=== PATIENT | male | born 1990 | race Caucasian/White ===

== ENCOUNTER 2019-04-03 19:37 | Emergency (ER) | payer SELFPAY ==
[~2019-04-03] VITALS: Ht 177.8 cm; Wt 125.0 kg
[~2019-04-03 19:37] MED LIST: ACET325T33 PO; ALBU8.5H8 INH; AMOX500C2 PO; AZIT250T PO; BACTDS PO; CEPH-443 PO; IBUP-1542 PO; NAPR-985 PO; NPH10OT LEFT EAR; ONDA4TAB8 PO; POLY30OI TOP
[2019-04-03 20:20] VITALS: Ht 177.8 cm; Wt 125.0 kg
--- NOTE | 2019-04-03 23:10 | ERD ---
ER Documentation Chief Complaint Chief Complaint REPORTS BLOOD IN STOOL & BLOOD IN UNDERWEAR X 2 DAYS HPI 28-year-old male, previously healthy, presents to the emergency department, complaining of 2 days with painless rectal bleeding after the bowel movements. The patient denies history of previous episodes, no abdominal pain, no diarrhea or constipation. No fever or chills. ROS All systems reviewed and are negative except as per history of present illness. Medications Home Meds Active Scripts Ondansetron Hcl* (Zofran*) 4 Mg Tablet, 4 MG PO Q6H for NAUSEA AND/OR VOMITING, #30 TAB Prov:LORENA COOPER 10/13/16 Albuterol Sulfate* (Proair HFA*) 8.5 Gm Hfa.aer.ad, 2 PUFF INH Q4, #1 INHALER Prov:LORENA COOPER 10/13/16 Azithromycin* (Zithromax*) 250 Mg Tablet, 250 MG PO .ZPACK DIRECTED, #6 TAB TAKE 500 MG (2 TABS) THE FIRST DAY THEN 250 MG (1 TAB) DAYS 2-5 Prov:LORENA COOPER 10/13/16 Naproxen* (Naprosyn*) 500 Mg Tablet, 500 MG PO BID PRN for PAIN AND/OR INFLAMMATION, #30 TAB Prov:REEMA GRIDER PA-C 08/20/16 Neomycin/Polymyxin/Hydrocort* (Cortisporin* Otic) 10 Ml Susp, 4 DROP LEFT EAR QID for 7 Days, EA Prov:REEMA GRIDER PA-C 08/20/16 Ibuprofen* (Motrin*) 600 Mg Tab, 600 MG PO Q8, #12 TAB Prov:BRENDA SILVA DO 07/30/16 Acetaminophen* (Tylenol*) 325 Mg Tablet, 2 TAB PO Q8 PRN for PAIN AND OR ELEVATE D TEMP, #20 TAB Prov:BRENDA SILVA DO 07/30/16 Neomycin/Polymyxin/Hydrocort* (Cortisporin* Otic) 10 Ml Susp, 4 DROP LEFT EAR QID for 7 Days, EA Prov:BRENDA SILVA DO 07/30/16 Amoxicillin* (Amoxicillin*) 500 Mg Cap, 500 MG PO TID for 10 Days, CAP Prov:BRENDA SILVA DO 07/30/16 Ibuprofen* (Motrin*) 600 Mg Tab, 600 MG PO Q6, #30 TAB Prov:JUDI LOVELL PA-C 12/19/15 Cephalexin* (Keflex*) 500 Mg Capsule, 500 MG PO QID for 7 Days, CAP Prov:JUDI LOVELL PA-C 12/19/15 Sulfamethoxazole-Trimethoprim* (Bactrim* DS) 800-160 Mg Tab, 1 TAB PO BID for 10 Days, TAB Prov:JUDI LOVELL PA-C 12/19/15 Bacitracin-Polymyxin* (Bacitracin-Polymyxin* Oint) 30 Gm Oint..gm., 1 APPLIC TOP BID, #1 TUB Prov:JUDI LOVELL PA-C 12/19/15 Allergies Allergies: Coded Allergies: No Known Allergy (Unverified , 08/20/16) PMhx/Soc Medical and Surgical Hx: pt denies Medical Hx, pt denies Surgical Hx Hx Miscellaneous Medical Probl: No Hx Alcohol Use: No Hx Substance Use: No Hx Tobacco Use: No FmHx Family History: No diabetes, No coronary disease Physical Exam Vitals Vital Signs Date Temp Pulse Resp B/P (MAP) Pulse Ox O2 O2 Flow FiO2 Time Delivery Rate 04/04/19 99.2 98 18 140/95 97 01:40 (110) 04/03/19 99.7 103 18 154/94 98 20:20 (114) Physical Exam Const: No acute distress Head: Atraumatic Eyes: Normal Conjunctiva ENT: Normal External Ears, Nose and Mouth. Neck: Full range of motion. No meningismus. Resp: Clear to auscultation bilaterally Cardio: Regular rate and rhythm, no murmurs Abd: Soft, non tender, non distended. Normal bowel sounds Rectal Exam: Normal tone, internal hemorrhoids palpated, Positive control Stool: Brown Guaiac: Negative Skin: No petechiae or rashes Back: No midline or flank tenderness Ext: No cyanosis, or edema Neur: Awake and alert Psych: Normal Mood and Affect Result Diagram: 04/03/19 5249 04/03/19 2326 Results 24 hrs Laboratory Tests Test 04/03/19 23:26 White Blood Count 7.3 10^3/ul Red Blood Count 5.32 10^6/ul Hemoglobin 15.4 g/dl Hematocrit 46.0 % Mean Corpuscular Volume 86.5 fl Mean Corpuscular Hemoglobin 28.9 pg Mean Corpuscular Hemoglobin Concent 33.5 g/dl Red Cell Distribution Width 12.3 % Platelet Count 252 10^3/UL Mean Platelet Volume 10.3 fl Immature Granulocytes % 0.400 % Neutrophils % 57.6 % Lymphocytes % 21.5 % Monocytes % 17.9 % Eosinophils % 2.3 % Basophils % 0.3 % Nucleated Red Blood Cells % 0.0 /100WBC Immature Granulocytes # 0.030 10^3/ul Neutrophils # 4.2 10^3/ul Lymphocytes # 1.6 10^3/ul Monocytes # 1.3 10^3/ul Eosinophils # 0.2 10^3/ul Basophils # 0.0 10^3/ul Nucleated Red Blood Cells # 0.0 10^3/ul Sodium Level 141 mmol/L Potassium Level 3.9 mmol/L Chloride Level 101 mmol/L Carbon Dioxide Level 28 mmol/L Anion Gap 12 Blood Urea Nitrogen 9 mg/dl Creatinine 0.77 mg/dl Est Glomerular Filtrat Rate mL/min > 60 mL/min Glucose Level 110 mg/dl Calcium Level 9.3 mg/dl Total Bilirubin 1.2 mg/dl Direct Bilirubin 0.00 mg/dl Indirect Bilirubin 1.2 mg/dl Aspartate Amino Transf (AST/SGOT) 46 IU/L Alanine Aminotransferase (ALT/SGPT) 107 IU/L Alkaline Phosphatase 74 IU/L Total Protein 8.3 g/dl Albumin 4.6 g/dl Globulin 3.70 g/dl Albumin/Globulin Ratio 1.24 Lipase 44 U/L Procedures/MDM Differential diagnosis include but not limited to: Internal hemorrhoid, external hemorrhoid, skin tag, bowel Obstruction, ileus, fecal impaction. Low suspicion for acute abdomen. Physical examination and clinical presentation consistent most likely with internal hemorrhoids, negative active rectal bleeding during rectal exam. During the ED course the patient remained stable, no new complaints. Treatment options, results and clinical impression discussed with the patient who agrees with management. The patient is stable to be treated outpatient and will be discharged home, some side effects of prescribed medications were reviewed. The patient was instructed to follow up with the primary care provider in the next 48h. If symptoms persist, worsen or new symptoms develop, then patient should return to the ED immediately. Instructions explained and given directly by me to the patient with acknowledgment and demonstrated understanding. Disclaimer: Inadvertent spelling and grammatical errors are likely due to EHR/d ictation software use and do not reflect on the overall quality of patient care. Also, please note that the electronic time recorded on this note does not necessarily reflect the actual time of the patient encounter. Departure Diagnosis: Primary Impression: Rectal bleeding Additional Impression: Internal hemorrhoid, bleeding Condition: Stable Additional Instructions: Thank you very much for allowing us to participate in your care. Your health and safety is our top priority at [facility]. The evaluation in the emergency department has been done to rule out an acute emergency. Chronic, [id number] conditions may have not been evalua shellie; therefore, you need to follow up with a primary care provider in the next 48h. If symptoms persist, worsen or new symptoms develop, then patient should return to the ED immediately. Call your primary care doctor TOMORROW for an appointment during the next 2-4 days and bring all the information provided. Have prescriptions filled and follow precisely the directions on the label. If the symptoms get worse and your provider is unavailable, return to the Emergency Department immediately. ANABELLA CABRERA MD Apr 03, 2019 23:10
[2019-04-04 01:40] VITALS: BP 140/95; PULSE 98; RESP 18
== END 2019-04-04 01:41 | disposition home or self-care (01) ==
LOC: FTE 19:37
DX: K62.5 Hemorrhage of anus and rectum (principal); K64.8 Other hemorrhoids
CPT/HCPCS: 74176; 80053; 83690; 85025